=== PATIENT | male | born 1995 | race Caucasian/White ===

== ENCOUNTER 2016-09-29 08:16 | Emergency (ER) | payer SELFPAY ==
[~2016-09-29] VITALS: Ht 175.3 cm; Wt 127.3 kg
[2016-09-29 08:17] VITALS: Ht 175.3 cm; Wt 127.3 kg
[2016-09-29] MEDS ORDERED: morphine 4 MG/ML VIAL IV STA (08:49)
[2016-09-29] MEDS ORDERED: ONDANSETRON 4 MG INJ IV STA (08:49)
[2016-09-29] MEDS ORDERED: SOD CHLORIDE 0.9% 1,000 ML IV ONE (09:00)
[2016-09-29] MEDS ORDERED: HYDROCODONE/APAP (5/325) TAB PO ONE ×2 (09:00)
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
[2016-09-29 09:46] LABS: ADD SCAN DIFF NO
[2016-09-29 09:49] LABS: ABNORMAL IP MESSAGE 1; BASOPHIL # 0.1 10^3/ul (0.0-0.1); BASOPHILS % 0.3 % (0.0-2.0); HEMATOCRIT 50.4 % (42.0-52.0); HEMOGLOBIN 16.1 g/dl (14.0-18.0); LYMPHOCYTES # 0.6 10^3/ul (0.8-2.9); LYMPHOCYTES % 3.3 % (15.0-51.0); MEAN CORPUSCULAR HGB CONC 31.9 g/dl (32.0-37.0); MEAN CORPUSCULAR VOLUME 87.7 fl (82.0-101.0); MEAN PLATELET VOLUME 9.3 fl (7.4-10.4); MONOCYTE # 1.8 10^3/ul (0.3-0.9); MONOCYTES % 9.6 % (0.0-11.0); NEUTROPHIL # 15.8 10^3/ul (1.6-7.5); NEUTROPHILS % 86.1 % (39.0-77.0); PLATELET COUNT 273 10^3/UL (140-415); RED BLOOD COUNT 5.75 10^6/ul (4.70-6.10); RED CELL DISTRIBUTION WIDTH 13.2 % (11.5-14.5); WHITE BLOOD COUNT 18.4 10^3/ul (4.8-10.8)
[2016-09-29 09:55] LABS: ALBUMIN 4.5 g/dl (3.3-4.9); POTASSIUM 3.8 mmol/L (3.5-5.1)
[2016-09-29 09:57] LABS: BILIRUBIN,INDIRECT 0.8 mg/dl (0-1.1); BILIRUBIN,TOTAL 0.8 mg/dl (0.2-1.3); CREATININE 0.73 mg/dl (0.61-1.24)
[2016-09-29 09:58] LABS: ALBUMIN/GLOBULIN RATIO 1.4; CALCIUM 9.2 mg/dl (8.4-10.2); TOTAL PROTEIN 7.7 g/dl (6.1-8.1)
[2016-09-29] MEDS ORDERED: IOHEXOL 300MG/ML 150 ML BTL ONE (10:12)
[2016-09-29] MEDS ORDERED: SOD CHLORIDE 0.9% 100 ML ONE (10:12)
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
--- NOTE | 2016-09-29 10:34 | RADRPT ---
PROCEDURE: XR Ankle. CLINICAL INDICATION: Left ankle pain following injury TECHNIQUE: 3 views of the left ankle were performed. COMPARISON: None. FINDINGS: The osseous structures demonstrate normal alignment and mineralization. No acute fracture or disloc ation is seen. The ankle mortise is intact. No periostitis or osteochondral lesion is identified. There is diffuse soft tissue edema. IMPRESSION: Diffuse soft tissue edema. No acute fracture identified. RPTAT: HH .Wendy Thorpe MD, MD Date Time Electronically viewed and signed by .Wendy Thorpe MD, on 09/29/2016 10:33 .G/
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
--- NOTE | 2016-09-29 10:36 | RADRPT ---
PROCEDURE: XR Elbow. CLINICAL INDICATION: Right elbow pain following injury TECHNIQUE: Three views of the right elbow are available for review COMPARISON: None available FINDINGS: The osseous structures demonstrate normal alignment and mineralization. There is elevation of the p osterior fat pad indicating presence of a joint effusion. No linear lucency cortical abnormality is noted. No radiopaque foreign body is identified. IMPRESSION: Elevation of the posterior fat pad, indicating presence of a joint effusion. No linear lucency or co rtical abnormality is appreciated. Findings may reflect occult fracture. Consider CT of the elbow o r follow-up imaging in 10-14 days for further evaluation. RPTAT: HH .Wendy Thorpe MD, MD Date Time Electronically viewed and signed by .Wendy Thorpe MD, on 09/29/2016 10:36 .G/
[2016-09-29 10:53] LABS: ADD UMIC YES; URINE BILIRUBIN (Dip) NEGATIVE (NEGATIVE); URINE BLOOD (Dip) 1+ (NEGATIVE); URINE COLOR LT. YELLOW (YELLOW); URINE GLUCOSE (Dip) NEGATIVE (NEGATIVE); URINE KETONES (Dip) NEGATIVE (NEGATIVE); URINE LEUKOCYTE ESTERASE (Dip) NEGATIVE (NEGATIVE); URINE NITRITE (Dip) NEGATIVE (NEGATIVE); URINE TOTAL PROTEIN (Dip) NEGATIVE (NEGATIVE); URINE UROBILINOGEN (Dip) 0.2 E.U./dL (0.1-1.0)
[2016-09-29 11:11] LABS: MUCUS,URINE MODERATE; URINE RBCS 0-2 /HPF (0)
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
[2016-09-29] MEDS ORDERED: IBUPROFEN 800 MG TAB PO ONE (12:00)
[2016-09-29] MEDS ORDERED: DIPHTH/TET/ACEL PERTUSS (ADULT) 0.5 ML VIAL IM* ONE (12:00)
[2016-09-29] MEDS ORDERED: HYDR-906 PO (12:01)
[2016-09-29] MEDS ORDERED: IBUP800T25 PO (12:01)
[2016-09-29 12:38] VITALS: BP 122/78; PULSE 79; RESP 20
== END 2016-09-29 12:41 | disposition home or self-care (01) ==
LOC: FTE 08:16 → E/R 12:41
DX: S02.2XXA Fracture of nasal bones, initial encounter for closed fracture (principal); R40.2252 Coma scale, best verbal response, oriented, at arrival to emergency department; S20.219A Contusion of unspecified front wall of thorax, initial encounter; S30.1XXA Contusion of abdominal wall, initial encounter; S50.01XA Contusion of right elbow, initial encounter; R40.2142 Coma scale, eyes open, spontaneous, at arrival to emergency department; R40.2362 Coma scale, best motor response, obeys commands, at arrival to emergency department; V43.52XA Car driver injured in collision with other type car in traffic accident, initial encounter; Z23 Encounter for immunization
CPT/HCPCS: 36415; 70450; 70486; 71260; 72125; 73080; 73130; 73590; 73610; 74177; 80053; 81001; 81003; 85025; 90471; 96374; 96375; 99285; J2270; J2405; J7030; Q9967